=== PATIENT | male | born 1955 | race Caucasian/White ===

== ENCOUNTER → 2017-12-05 | Outpatient (CLI) | payer MEDICARE, MEDICAID | END | disposition home or self-care (01) | LOC: KCIC US 08:20 | DX: K40.90 Unilateral inguinal hernia, without obstruction or gangrene, not specified as recurrent (principal) | CPT/HCPCS: 76705 ==

== ENCOUNTER → 2017-12-11 | Outpatient (CLI) | payer MEDICARE, MEDICAID ==
[2017-12-11 13:15] LABS: ADD MAN DIFF? NO
[2017-12-11 13:18] LABS: BASO # 0.1 x10^3/uL (0.0-0.2); BASO % 1 % (0-3); EOS # 0.2 x10^3/uL (0.0-0.7); EOS % 2 % (0-3); HEMATOCRIT 42.9 % (39.0-53.0); HEMOGLOBIN 14.3 g/dL (13.0-17.5); LYMPH # 1.8 x10^3/uL (1.0-4.8); LYMPH % 22 % (24-48); MEAN CORPUSCULAR HEMOGLOBIN 31 pg (25-35); MEAN CORPUSCULAR HGB CONC 33 g/dL (31-37); MEAN CORPUSCULAR VOLUME 94 fL (79-100); MONO # 0.9 x10^3/uL (0.0-1.1); MONO % 11 % (0-9); NEUT # 5.1 x10^3uL (1.8-7.7); NEUT % 63 % (31-73); PLATELET COUNT 262 x10^3/uL (140-400); RED BLOOD COUNT 4.56 x10^6/uL (4.30-5.70)
[2017-12-11 13:28] LABS: ANION GAP 11 (6-14); BLOOD UREA NITROGEN 9 mg/dL (8-26); CALCIUM 9.5 mg/dL (8.5-10.1); CARBON DIOXIDE 25 mmol/L (21-32); CHLORIDE 103 mmol/L (98-107); CREATININE 0.9 mg/dL (0.7-1.3); GFR 85.8; GLUCOSE 89 mg/dL (70-99); POTASSIUM 3.9 mmol/L (3.5-5.1); SODIUM 139 mmol/L (136-145)
== END | disposition home or self-care (01) ==
LOC: SURGPAT 12:09
DX: K40.90 Unilateral inguinal hernia, without obstruction or gangrene, not specified as recurrent (principal)
CPT/HCPCS: 36415; 80048; 85025

== ENCOUNTER 2017-12-17 06:18 | Day surgery (SDC) | payer MEDICARE, MEDICAID ==
[2017-12-17] MEDS ORDERED: fentaNYL PF VIAL 100 MCG/2 ML VIAL IV ×2 (07:00)
[2017-12-17] MEDS ORDERED: MORPHINE SULFATE 4 MG/ML DISP.SYRIN. IV (07:00)
[2017-12-17] MEDS ORDERED: PROCHLORPERAZINE 10 MG/2 ML VIAL. IV (07:00)
[2017-12-17] MEDS ORDERED: ONDANSETRON PF 4 MG/2 ML VIAL. IV (07:00)
[2017-12-17] MEDS ORDERED: LIDOCAINE 1% PF 2 ML VIAL. ID (07:00)
[2017-12-17] MEDS: IV RINGERS,LACTATED 1000ML 1,000 ML IV ×2 (07:11→09:45)
[2017-12-17 07:18] LABS: POC GLUCOSE 123 mg/dL (70-99)
[2017-12-17] MEDS ORDERED: PROPOFOL 20 ML IV (07:23)
[2017-12-17] MEDS ORDERED: DEXAMETHASONE SOD PHOS 20 MG/5 ML VIAL. (07:23)
[2017-12-17] MEDS ORDERED: ONDANSETRON PF 4 MG/2 ML VIAL. (07:23)
[2017-12-17] MEDS ORDERED: fentaNYL PF VIAL 100 MCG/2 ML VIAL ×2 (07:24→08:58)
[2017-12-17] MEDS ORDERED: MIDAZOLAM HCL/PF 2 MG/2 ML VIAL. (07:24)
[2017-12-17] MEDS ORDERED: BUPIVAC MPF-EPI 0.5%-1:200000 30 ML VIAL. INJ (07:30)
[2017-12-17] MEDS ORDERED: PHENYLEPHRINE 10 MG/ML VIAL. (08:05)
[2017-12-17] MEDS: BUPIVAC MPF-EPI 0.5%-1:200000 30 ML VIAL. (08:29)
[2017-12-17] MEDS ORDERED: KETOROLAC 30 MG/ML INJ FOR OR. INJ (09:03)
[2017-12-17] MEDS ORDERED: SEVOFLURANE 61 TO 120 MINUTES. IH (09:04)
== END 2017-12-17 11:40 | disposition home or self-care (01) ==
LOC: SURG 06:18
DX: K40.91 Unilateral inguinal hernia, without obstruction or gangrene, recurrent (principal); E66.9 Obesity, unspecified; Z91.041 Radiographic dye allergy status; Z88.8 Allergy status to other drugs, medicaments and biological substances; R56.9 Unspecified convulsions; E78.00 Pure hypercholesterolemia, unspecified; I10 Essential (primary) hypertension; Z90.49 Acquired absence of other specified parts of digestive tract; E11.9 Type 2 diabetes mellitus without complications; F17.210 Nicotine dependence, cigarettes, uncomplicated
CPT/HCPCS: 49520; 82962; C1769; C1781; J1100; J1885; J2250; J2405; J2704; J3010; J3490